=== PATIENT | female | born 1975 | race Caucasian/White ===

== ENCOUNTER 2025-03-22 04:15 | Emergency (ER) | payer BC ==
[~2025-03-22] VITALS: Ht 167.6 cm; Wt 57.2 kg
[2025-03-22] MEDS ORDERED: SEMA0.25 SQ (04:28)
[2025-03-22] MEDS ORDERED: LEVO50TA8 PO (04:28)
[2025-03-22] MEDS ORDERED: ROSU20TA2 PO (04:28)
[2025-03-22] MEDS ORDERED: MAGNESIUM HYDROXIDE 30 ML LIQUID UDC ONE (04:42)
[2025-03-22] MEDS ORDERED: MAGNESIUM CITRATE 296 ML BOTTLE ONE (04:42)
[2025-03-22] MEDS: MAGNESIUM CITRATE 296 ML BOTTLE PO ONE (04:45)
[2025-03-22] MEDS: MAGNESIUM HYDROXIDE 30 ML LIQUID UDC PO ONE (04:46)
[2025-03-22 04:51] LABS: BASOPHILS % (AUTO) 0.4 % (0.0-2.0); EOSINOPHILS # (AUTO) 0.1 K/uL (0.0-0.7); EOSINOPHILS % (AUTO) 0.8 % (0.0-7.0); HEMATOCRIT 41.9 % (31.2-41.9); HEMOGLOBIN 14.2 g/dL (10.9-14.3); LYMPHOCYTES # (AUTO) 1.2 K/uL (0.8-4.8); LYMPHOCYTES % (AUTO) 11.3 % (20.5-51.5); MEAN CORPUSCULAR HEMOGLOBIN 28.5 uug (24.7-32.8); MEAN CORPUSCULAR HGB CONC 34 g/dL (32.3-35.6); MEAN CORPUSCULAR VOLUME 84.2 fL (75.5-95.3); MONOCYTES # (AUTO) 0.6 K/uL (0.1-1.30); MONOCYTES % (AUTO) 5.7 % (0.0-11.0); NEUTROPHILS # (AUTO) 8.4 K/uL (1.8-8.9); NEUTROPHILS % (AUTO) 81.8 % (38.5-71.5); PLATELET COUNT (AUTO) 256 K/uL (179-408); RED BLOOD CELL COUNT(AUTO) 4.97 MIL/uL (3.63-4.92); RED CELL DISTRIBUTION WIDTH 12.6 % (12.3-17.7); WHITE BLOOD COUNT (AUTO) 10.3 K/uL (3.8-11.8)
[2025-03-22 04:52] LABS: DIFFERENTIAL COMMENT 1
[2025-03-22] MEDS ORDERED: FLEET ENEMA 133 ML BOTTLE RC ONE (04:55)
[2025-03-22] MEDS: FLEET ENEMA 133 ML BOTTLE RC ONE (04:57)
[2025-03-22 05:04] LABS: ALBUMIN 3.9 g/dL (3.4-5.0); BILIRUBIN,TOTAL 0.6 mg/dL (0.2-1.0); CREATININE 0.8 mg/dL (0.6-1.3); MAGNESIUM 1.9 mg/dL (1.8-2.4); POTASSIUM 4.1 mmol/L (3.5-5.1)
[2025-03-22] MEDS: GOLYTELY 4000 ML BOTTLE PO ONE (05:45)
[2025-03-22 09:13] VITALS: BP 101/68; O2SAT 99
== END 2025-03-22 09:13 | disposition home or self-care (01) ==
LOC: ER 04:15
DX: K59.00 Constipation, unspecified (principal); E03.9 Hypothyroidism, unspecified; E78.5 Hyperlipidemia, unspecified; Z79.899 Other long term (current) drug therapy
CPT/HCPCS: 36415; 83735; 84443; 85025; A4606; A4663